=== PATIENT | male | born 1980 | race Caucasian/White ===

== ENCOUNTER 2019-01-01 03:04 | Emergency (ER) | payer MEDICARE, OTHER ==
[~2019-01-01] VITALS: Ht 185.4 cm; Wt 86.2 kg
--- OUTSIDE RECORDS SUMMARY | 2019-01-01 03:11 | XMS REPORT | Continuity of Care Document ---
Author Organization Unknown Address Unknown Phone Unavailable Allergies There is no data. Medications There is no data. Problems There is no data. Procedures There is no data. Results Test Result Range TSH w/ FREE T4 - 09/29/18 15:51 TSH 1.79 mIU/L 0.40-4.50 T4, FREE 1.2 ng/dL 0.8-1.8 LIPID PANEL - 09/29/18 15:51 CHOLESTEROL, TOTAL 191 mg/dL <200 HDL CHOLESTEROL 66 mg/dL >40 TRIGLYCERIDES 40 mg/dL <150 LDL-CHOLESTEROL 113 mg/dL (calc) NRG CHOL/HDLC RATIO 2.9 (calc) <5.0 NON HDL CHOLESTEROL 125 mg/dL (calc) <130 CMP - 09/29/18 15:51 GLUCOSE 60 mg/dL 65-99 UREA NITROGEN (BUN) 11 mg/dL 7-25 CREATININE 0.67 mg/dL 0.60-1.35 eGFR NON-AFR. CITIZEN OF [place] 122 mL/min/1.73m2 > OR=60 eGFR 141 mL/min/1.73m2 > OR=60 BUN/CREATININE RATIO NOT APPLICABLE (calc) 6-22 SODIUM 142 mmol/L 135-146 POTASSIUM 3.7 mmol/L 3.5-5.3 CHLORIDE 102 mmol/L 98-110 CARBON DIOXIDE 22 mmol/L 20-32 CALCIUM 9.4 mg/dL 8.6-10.3 PROTEIN, TOTAL 6.8 g/dL 6.1-8.1 ALBUMIN 4.6 g/dL 3.6-5.1 GLOBULIN 2.2 g/dL (calc) 1.9-3.7 ALBUMIN/GLOBULIN RATIO 2.1 (calc) 1.0-2.5 BILIRUBIN, TOTAL 0.7 mg/dL 0.2-1.2 ALKALINE PHOSPHATASE 62 U/L 40-115 AST 22 U/L 10-40 ALT 31 U/L 9-46 CBC w/MANUAL DIFF - 09/29/18 15:51 WHITE BLOOD CELL COUNT 5.7 Thousand/uL 3.8-10.8 RED BLOOD CELL COUNT 4.81 Million/uL 4.20-5.80 HEMOGLOBIN 14.8 g/dL 13.2-17.1 HEMATOCRIT 43.9 % 38.5-50.0 MCV 91.3 fL 80.0-100.0 MCH 30.8 pg 27.0-33.0 MCHC 33.7 g/dL 32.0-36.0 RDW 13.3 % 11.0-15.0 PLATELET COUNT 175 Thousand/uL 140-400 MPV 12.7 fL 7.5-12.5 ABSOLUTE NEUTROPHILS 2451 cells/uL 9776-1191 ABSOLUTE MONOCYTES 285 cells/uL 200-950 ABSOLUTE EOSINOPHILS 342 cells/uL 15-500 ABSOLUTE BASOPHILS 0 cells/uL 0-200 NEUTROPHILS 43.0 % NRG LYMPHOCYTES 46.0 % NRG MONOCYTES 5.0 % NRG EOSINOPHILS 6.0 % NRG BASOPHILS 0 % NRG ABSOLUTE LYMPHOCYTES 2622 cells/uL 850-3900 PLATELET ESTIMATION ADEQUATE ADEQUATE COMMENT(S) NRG SPECIMEN INTEGRITY COMPROMISED - 09/29/18 15:51 SPECIMEN INTEGRITY COMPROMISED NRG Encounters ACCT No. Visit Date/Time Discharge Status Pt. Type Provider Facility Loc./Unit Complaint [id number] 11/07/2018 14:30:00 11/07/2018 23:59:59 [facility] [id number] 09/29/2018 15:40:00 Document Registration
[2019-01-01] MEDS ORDERED: CYCLOBENZAPRINE 10 MG (FLEXERIL) TAB ONE (03:23)
--- NOTE | 2019-01-01 03:28 | ED Lower Extremity ---
General Chief Complaint: Lower Extremity Stated Complaint: left leg pain Source: patient, family (MOTHER) Exam Limitations: language barrier (pt deaf, mother present and translating with sign language) History of Present Illness Date Seen by Provider: Jan 01, 2019 Time Seen by Provider: 03:15 Initial Comments The patient is a pleasant 38-year-old male who presents for evaluation of lower back pain radiating to the left lower extremity which started earlier yesterday. 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 He believes that he pulled a muscle and is quite uncomfortable. He then noticed some muscle spasms to his lower back and radiation of pain down the back of the left leg. He denies previous similar symptoms. He states that years ago in high school he had a back injury from playing football. He reports feeling better standing up and sitting down. He denies any fevers or chills, bowel or bladder problems, focal weakness or numbness, abdominal pain, recent trauma or fall, trauma or syncope. He is able to ambulate to the emergency department room without any apparent difficulty or assistance. The patient is deaf and his mother is present and is interpreting with sign language. Onset: yesterday Severity: moderate Method of Injury: twisted Modifying Factors: Improves With Movement (makes it worse) Allergies and Home Medications Allergies Coded Allergies: No Known Drug Allergies (Unverified , 01/01/19) Patient Home Medication List Home Medication List Reviewed: Yes Review of Systems Constitutional: no symptoms reported EENTM: no symptoms reported Respiratory: no symptoms reported Cardiovascular: no symptoms reported Gastrointestinal: no symptoms reported Genitourinary: no symptoms reported Musculoskeletal: back pain Skin: no symptoms reported Psychiatric/Neurological: No Symptoms Reported All Other Systems Reviewed Negative Unless Noted: Yes Past Sytgtlk-Qhtbiz-Zcnjkc Hx Past Med/Social Hx: Reviewed Nursing Past Med/Soc Hx Patient Social History Alcohol Use: Denies Use Recreational Drug Use: No Type Used: Smokeless Tobacco Recent Hopitalizations: No Physical Abuse: No Sexual Abuse: No Mistreated: No Fear: No Seasonal Allergies Seasonal Allergies: No Past Medical History Surgeries: No Respiratory: No Cardiac: No Neurological: No Genitourinary: No Gastrointestinal: No Musculoskeletal: No Endocrine: No HEENT: Yes Hearing Impairment: Deaf Cancer: No Did You Recieve Any Treatments: No Psychosocial: No Integumentary: No Physical Exam Vital Signs Vital Signs - First Documented 01/01/19 03:09 Temp 97.5 Pulse 72 Resp 20 B/P (MAP) 138/90 (106) Pulse Ox 95 O2 Delivery Room Air Capillary Refill : Height, Weight, BMI Height: '" Weight: lbs. oz. kg; BMI Method: General Appearance: WD/WN, no apparent distress HEENT: PERRL/EOMI Neck: non-tender, normal inspection Cardiovascular: regular rate, rhythm, no JVD, no murmur Respiratory: normal breath sounds, no respiratory distress, no accessory muscle use Back: no CVA tenderness, other (tenderness with palpation in the paraspinal muscles in the left lumbar region, muscle spasm present, no midline tenderness, no step-off or deformity) Hips: bilateral hip non-tender, bilateral hip normal inspection, bilateral hip normal range of motion, bilateral hip no evidence of injury Legs: bilateral leg non-tender, bilateral leg normal inspection, bilateral leg normal range of motion, bilateral leg no evidence of injury Knees: bilateral knee non-tender, bilateral knee normal inspection, bilateral knee normal range of motion, bilateral knee no evidence of injury Ankles: bilateral ankle non-tender, bilateral ankle normal inspection, bilateral ankle normal range of motion, bilateral ankle no evidence of injury Neurologic/Tendon: normal sensation, normal motor functions, normal tendon functions Neurologic/Psychiatric: label fuser tender II-XII nml as tested, alert, normal mood/affect, oriented x 3 Skin: normal color, warm/dry Lymphatic: no adenopathy Progress/Results/Core Measures Results/Orders My Orders Orders - OLAMIDE LAWS DO Ketorolac Injection (Toradol Injection) (01/01/19 03:30) Diazepam Injection (Valium Injection) (01/01/19 03:30) Tramadol Tablet (Ultram Tablet) (01/01/19 03:30) Lumbar Spine 2 Or 3 View (01/01/19 03:22) Cyclobenzaprine Tablet (Flexeril Tablet) (01/01/19 03:30) Vital Signs/I&O 01/01/19 03:09 Temp 97.5 Pulse 72 Resp 20 B/P (MAP) 138/90 (106) Pulse Ox 95 O2 Delivery Room Air Progress Progress Note : Progress Note @0350 - patient and mother informed of unremarkable x-ray imaging. The patient will go home with a prescription for Ashburn and Flexeril and has been given a physician to follow-up with. Advised the patient to return to the emergency department immediately for new or worsening symptoms. The patient expresses unde rstanding and agreement with the plan through his mother who is interpreting. He is stable for discharge at this time. Departure Impression Primary Impression: Acute left-sided back pain with sciatica Disposition: HOME, SELF-CARE Condition: Stable Departure-Patient Inst. Decision time for Depature: 03:55 Referrals: DAVID JEFFERY,LOCAL PHYSICIAN (PCP) Primary Care Physician Patient Instructions: Low Back Pain (DC), Muscle Spasms (DC), Sciatica (DC), Sciatica Exercises Add. Discharge Instructions: Take the prescribed medication as directed. Follow-up with your primary care physician in the next 1-2 days. Return to the emergency department for new or worsening symptoms. Scripts Cyclobenzaprine HCl (Cyclobenzaprine HCl) 10 Mg Tablet 10 MG PO Q6H PRN for BACK PAIN for 3 Days, #12 TAB Prov: OLAMIDE LAWS DO 01/01/19 Hydrocodone/Acetaminophen (Ashburn 5-325 Tablet) 1 Each Tablet 1 TAB PO Q4-6HR PRN for BACK PAIN MDD 10 TABS for 3 Days, #12 TAB Prov: OLAMIDE LAWS DO 01/01/19 OLAMIDE LAWS DO Jan 01, 2019 03:28
[2019-01-01] MEDS ORDERED: CYCLOBENZAPRINE 10 MG (FLEXERIL) TAB PO PRN (03:30)
[2019-01-01] MEDS ORDERED: DIAZEPAM INJ 10 MG/2 ML (VALIUM) SYR IM ONE (03:30)
[2019-01-01] MEDS ORDERED: KETOROLAC 60 MG/2 ML VIAL IM ONE (03:30)
[2019-01-01] MEDS ORDERED: HYDR-4226 PO (03:49)
[2019-01-01] MEDS ORDERED: CYCL10TA9 PO (03:49)
[2019-01-01 03:56] VITALS: BP 138/90
--- NOTE | 2019-01-01 06:49 | Diagnostic Imaging Report ---
INDICATION: Back pain Lumbar spine AP and lateral views of the lumbar spine show mild degenerative changes of the disc at L5-S1. Alignment is normal. The other disc spaces are normal. There are no compression fractures. IMPRESSION: Minimal degenerative changes at L5-S1. Dictated by: Dictated on workstation # [id number]
== END 2019-01-01 03:56 | disposition home or self-care (01) ==
LOC: ER FS 03:07
DX: M54.42 Lumbago with sciatica, left side (principal); X50.1XXA Overexertion from prolonged static or awkward postures, initial encounter; Y92.59 Other trade areas as the place of occurrence of the external cause; Y99.0 Civilian activity done for income or pay
CPT/HCPCS: 72100

== ENCOUNTER 2019-01-08 15:02 | Emergency (ER) | payer MEDICARE ==
[~2019-01-08] VITALS: Ht 152.4 cm; Wt 127.0 kg
[~2019-01-08 15:02] MED LIST: CYCL10TA9 PO; HYDR-4226 PO
[2019-01-08] MEDS ORDERED: DEXAMETHASONE 4 MG/ML SDV (DECADRON) IM ONE (15:45)
[2019-01-08] MEDS ORDERED: KETOROLAC 60 MG/2 ML VIAL IM ONE (15:45)
--- NOTE | 2019-01-08 15:46 | ED Back Pain ---
General Chief Complaint: Lower Extremity Stated Complaint: ANAL & LT LEG PAIN Source of Information: Patient Exam Limitations: No Limitations, Other (Pt is deaf, communicated by writing on cell phone) History of Present Illness Date Seen by Provider: Jan 08, 2019 Time Seen by Provider: 15:30 Initial Comments The patient is a very pleasant 38-year-old male presents for evaluation of left lower back/buttock pain radiating down the left leg. He has been seen here a few times previously for the same complaint. He states that he went to urgent care the other day for his sciatica and received a steroid injection which helped significantly. Today he drove himself to the emergency department and was able to get into the room without any difficulty or assistance. The patient is deaf and communicates with writing on his cell phone. He denies any difficulty controlling his bowel or bladder, fevers or chills, recent trauma, recent injections into his spine, nausea or vomiting, unintentional weight loss, focal weakness or focal numbness. He is alert and oriented 4, calm, appears somewhat uncomfortable but in no distress. 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) Modifying Factors: Improves With Movement (makes the pain worse), Improves With Pain Medication (Makes the pain better), Improves With Rest (makes the pain better) Allergies and Home Medications Allergies Coded Allergies: No Known Drug Allergies (Unverified , 01/01/19) Home Medications Cyclobenzaprine HCl 10 Mg Tablet, 10 MG PO Q6H PRN for BACK PAIN Prescribed by: OLAMIDE LAWS on 01/01/19 0349 Hydrocodone/Acetaminophen 1 Each Tablet, 1 TAB PO Q4-6HR PRN for BACK PAIN Prescribed by: OLAMIDE LAWS on 01/01/19 0349 Patient Home Medication List Home Medication List Reviewed: Yes Review of Systems Constitutional: no symptoms reported EENTM: no symptoms reported Respiratory: no symptoms reported Cardiovascular: no symptoms reported Gastrointestinal: no symptoms reported Genitourinary: no symptoms reported Musculoskeletal: back pain (radiating down the left leg) Skin: no symptoms reported Psychiatric/Neurological: No Symptoms Reported All Other Systems Reviewed Negative Unless Noted: Yes Past Mjhjkiq-Kmvhgk-Jecfgj Hx Past Med/Social Hx: Reviewed Nursing Past Med/Soc Hx Patient Social History Type Used: Smokeless Tobacco Recent Hopitalizations: No Seasonal Allergies Seasonal Allergies: No Past Medical History Surgeries: No Respiratory: No Cardiac: No Neurological: No Genitourinary: No Gastrointestinal: No Musculoskeletal: No Endocrine: No HEENT: Yes Hearing Impairment: Deaf Cancer: No Did You Recieve Any Treatments: No Psychosocial: No Integumentary: No Physical Exam Vital Signs Capillary Refill : Height, Weight, BMI Height: 6'1.00" Weight: 190lbs. 0oz. [id number]; BMI Method:Stated General Appearance: No Apparent Distress, WD/WN HEENT: PERRL/EOMI, Normal ENT Inspection Neck: Full Range of Motion, Non Tender Cardiovascular: Regular Rate, Rhythm, No Edema, Normal Peripheral Pulses Respiratory: Chest Non Tender, Normal Breath Sounds, No Respiratory Distress Gastrointestinal: Normal Bowel Sounds, Non Tender, Soft Back: No CVA Tenderness, No Vertebral Tenderness, Other (tenderness palpation at the left lumbosacral border and the left upper buttock) Extremity: Non Tender Neurologic/Psychiatric: Alert, Oriented x3, No Motor/Sensory Deficits, Normal Mood/Affect Skin: Normal Color, Warm/Dry Progress/Results/Core Measures Results/Orders My Orders Orders - OLAMIDE LAWS DO Dexamethasone Injection (Decadron Inject (01/08/19 15:45) Ketorolac Injection (Toradol Injection) (01/08/19 15:45) Medications Given in ED Current Medications Medications Dose Ordered Sig/David Route Start Time Stop Time Status Last Admin Dose Admin Dexamethasone Sodium Phosphate 10 mg ONCE ONCE IM 01/08/19 15:45 01/08/19 15:46 DC 01/08/19 16:04 10 MG Ketorolac Tromethamine 60 mg ONCE ONCE IM 01/08/19 15:45 01/08/19 15:46 DC 01/08/19 16:04 60 MG Progress Progress Note : Progress Note @1605 - Advised the patient to follow up with his PCP and that he maybe an MRI. Patient is able to walk without any difficulty. He will go home with a prescription for a muscle relaxer and pain medication. Advised patient to return to the emergency department for new or worsening symptoms. No red flags for serious back pain etiology identified at this time. Departure Impression Primary Impression: Sciatica of left side Disposition: HOME, SELF-CARE Condition: Stable Departure-Patient Inst. Decision time for Depature: 16:10 Referrals: CRISTINA CARLISLE MD NO,LOCAL PHYSICIAN (PCP) Primary Care Physician Patient Instructions: Sciatica Exercises, Sciatica, Femur Fracture (DC) Add. Discharge Instructions: Take the medication as prescribed, as needed. Follow-up with your doctor in the next 1-2 days. As discussed you may need to have an MRI to further evaluate your lower back and sciatic nerve. Return to the emergency department for new or worsening symptoms. Scripts Tramadol HCl (Ultram) 50 Mg Tablet 50 MG PO Q6H for Back Pain for 3 Days, #12 TAB Prov: OLAMIDE LAWS DO 01/08/19 Diazepam (Valium) 5 Mg Tablet 5 MG PO Q8H for Muscle Spasms for 4 Days, #12 TAB Prov: OLAMIDE LAWS DO 01/08/19 OLAMIDE LAWS DO Jan 08, 2019 15:46
[2019-01-08] MEDS ORDERED: TRAM-42 PO (16:10)
[2019-01-08] MEDS ORDERED: DIAZ5TAB PO (16:10)
[2019-01-08 16:15] VITALS: BP 106/85
== END 2019-01-08 16:19 | disposition home or self-care (01) ==
LOC: EDUNIT# 15:02 → ER FS 15:04
DX: M54.42 Lumbago with sciatica, left side (principal)
CPT/HCPCS: 99284

== ENCOUNTER → 2019-01-19 | Outpatient (CLI) | payer BC, MEDICARE ==
[~2019-01-19] MED LIST changes: +DIAZ5TAB PO; +TRAM-42 PO
--- NOTE | 2019-01-19 09:20 | Diagnostic Imaging Report ---
PROCEDURE: MRI left joint lower extremity without contrast. TECHNIQUE: Multiplanar, multisequence non contrast-enhanced MRI of the left lower extremity was accomplished. INDICATION: Knee pain. FINDINGS: The anterior cruciate and posterior cruciate ligaments are intact. Both the superficial and deep components of the medial collateral ligament are intact. The biceps femoris, fibular collateral and iliotibial band are intact. The popliteus tendon is intact. The medial meniscus is normal in signal intensity and morphology. The lateral meniscus is also normal in signal intensity and morphology. The quadriceps tendon and patellar tendons are intact. There is no significant knee joint effusion. The articular cartilage is well maintained in all three knee joint compartments. There are no areas of underlying marrow edema. IMPRESSION: No significant internal derangement of the left knee. Dictated by: Dictated on workstation # [id number]
--- NOTE | 2019-01-19 10:43 | Diagnostic Imaging Report ---
PROCEDURE: MRI left joint lower extremity without contrast. TECHNIQUE: Multiplanar, multisequence non contrast-enhanced MRI of the left lower extremity was accomplished. INDICATION: Left-sided pain from the buttock region down to the foot since earlier this month. EXAMINATION: MRI of the left lower extremity from 01/19/2019. FINDINGS: There is a fluidlike collection along the posterior aspect of the left hip. Its origin is uncertain but most likely emanates from the joint space suggesting a ganglion. This is somewhat complex in appearance and its largest component measures 1.9 cm in greatest dimension. The hip joint itself does demonstrate a linear hyperintensity along the anterior superior labrum best seen on the sagittal proton density fat-saturated sequence image #16. If there are symptoms suggestive of a labral tear post-arthrogram imaging could better characterize this finding. The osseous structures demonstrate no evidence for acute abnormalities. The hamstrings tendon origins bilaterally symmetric and unremarkable. Remaining visualized tendons intact with visualized iliopsoas tendons and muscles also unremarkable. The intrapelvic structures demonstrate no acute abnormalities. IMPRESSION: 1. Nonspecific cystic collection posterior left hip most likely a ganglion on emanating from the hip joint. This in addition to the questions tear of the anterior superior labrum could be better characterized with post-arthrogram imaging as clinically indicated. Dictated by: Dictated on workstation # [id number]
== END ==
LOC: RAD 08:05
PROVIDERS: ATTEND Nurse Practitioner Family
DX: M25.562 Pain in left knee (principal); M25.552 Pain in left hip
CPT/HCPCS: 73721

== ENCOUNTER → 2019-01-20 | Outpatient (CLI) | payer MEDICARE ==
--- NOTE | 2019-01-20 11:17 | Diagnostic Imaging Report ---
PROCEDURE: MRI lumbar spine. TECHNIQUE: Multiplanar, multisequence MRI of the lumbar spine was performed without contrast. INDICATION: Back injury, pain. COMPARISON: None. FINDINGS: For the purposes of this exam, last well-formed disc space is denoted the L5-S1 level. Evaluation of the static alignment shows slight grade 1 retrolisthesis at L5-S1. There is no evidence of jumped facets. Vertebral body heights are maintained. There is no evidence of acute fracture. Evaluation of the marrow signal demonstrates Modic type I change of the adjacent endplates at L5-S1. There is also mild intervertebral disc height loss at this level. Remaining intervertebral disc heights are fairly well maintained, although note is also made of posterior annular tear at L4-L5. Visualized portions of the distal cord are unremarkable. Conus terminates at approximately the L1-L2 level. No abnormal intrathecal filling defects are seen. Pre- and para-vertebral soft tissue structures are unremarkable. The axial images demonstrate the following: L1-L2 and L2-L3: There is no significant disc bulge or focal protrusion. There is no significant spinal canal or neural foraminal stenosis. L3-L4: There is slight broad-based posterior disc bulge, which results in minimal effacement of the anterior thecal sac. Spinal canal and neural foramina are otherwise unremarkable. L4-L5: There is broad-based posterior disc bulge and bilateral ligamentum flavum laxity and facet arthropathy. As a result, there is mild narrowing of the spinal canal and neural foramina. L5-S1: There is broad-based posterior disc bulge. Additionally, there is extrusion of disc material inferiorly into the anterior epidural space posterior to the S1 vertebral body on the left. This likely results in significant mass effect on the exiting left S1 nerve root. There is also mild asymmetric stenosis of the spinal canal. Neural foramina are minimally narrowed. IMPRESSION: 1. Large extruded disc fragment posterior to the S1 vertebral body from the L5-S1 intervertebral disc resulting in severe mass effect on the exiting left S1 nerve root. 2. No acute fracture or dislocation. 3. Other degenerative changes of the lumbar spine as described above. Dictated by: Dictated on workstation # [id number]
== END ==
LOC: RAD 09:21
PROVIDERS: ATTEND Nurse Practitioner Family
DX: M51.27 Other intervertebral disc displacement, lumbosacral region (principal); M48.07 Spinal stenosis, lumbosacral region; M43.17 Spondylolisthesis, lumbosacral region; M51.37 Other intervertebral disc degeneration, lumbosacral region; S39.92XA Unspecified injury of lower back, initial encounter
CPT/HCPCS: 72148

== ENCOUNTER 2021-04-18 17:20 | Emergency (ER) | payer OTHER, BC ==
[~2021-04-18 17:20] MED LIST changes: +CYCL10TA25 PO; -CYCL10TA9 PO
[2021-04-18] MEDS ORDERED: FLUORESCEIN (FLUOR-I-STRIPS) 1 MG STRP ONE (17:28)
[2021-04-18] MEDS ORDERED: TETRACAINE 0.5% OPHTH SOLN 4 ML BTL (SINGLE DOSE ONLY) ONE (17:28)
[2021-04-18] MEDS ORDERED: TETRACAINE 0.5% OPHTH SOLN 4 ML BTL (SINGLE DOSE ONLY) OP ONE (17:30)
[2021-04-18] MEDS ORDERED: TETRACAINE 0.5% OPHTH SOLN 4 ML BTL (SINGLE DOSE ONLY) OU ONE (17:45)
[2021-04-18] MEDS ORDERED: FLUORESCEIN (FLUOR-I-STRIPS) 1 MG STRP OU ONE (17:45)
--- NOTE | 2021-04-18 17:52 | ED EENT ---
History of Present Illness General Chief Complaint: Eye Problems Stated Complaint: WC,EYE BURNING History of Present Illness Date Seen by Provider: Apr 18, 2021 Time Seen by Provider: 17:47 Initial Comments Patient presenting to the emergency department for evaluation of bilateral eye pain that started shortly prior to arrival. Patient is deaf so all communication was done over writing on a piece of paper which was initially difficult but after getting tetracaine he was able to read and write with no difficulties and communicated effectively. 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 Patient says he does not wear contact lenses or glasses. He denies any trauma or overuse and says that he has no vision changes or blurring rather just hurts significantly to open his eyes. He is uncomfortable but nontoxic with normal vital signs. Allergies and Home Medications Allergies Coded Allergies: No Known Drug Allergies (Unverified , 01/01/19) Patient Home Medication List Home Medication List Reviewed: Yes Cyclobenzaprine HCl (Cyclobenzaprine HCl) 10 Mg Tablet, 10 MG PO Q6H PRN for BACK PAIN Prescribed by: OLAMIDE LAWS on 01/01/19 0349 Diazepam (Valium) 5 Mg Tablet, 5 MG PO Q8H Prescribed by: OLAMIDE LAWS on 01/08/19 1610 Hydrocodone/Acetaminophen (Hydrocodone/Acetaminophen 5 MG/325 MG TAB) 1 Each Tablet, 1 TAB PO Q4-6HR PRN for BACK PAIN Prescribed by: OLAMIDE LAWS on 01/01/19 0349 Tramadol HCl (Ultram) 50 Mg Tablet, 50 MG PO Q6H Prescribed by: OLAMIDE LAWS on 01/08/19 1610 Review of Systems Review of Systems Constitutional: no symptoms reported Eyes: Drainage, Pain, Photophobia All Other Systems Reviewed Negative Unless Noted: Yes Past Ivityeq-Eqrsdz-Scyjim Hx Seasonal Allergies Seasonal Allergies: No Past Medical History Surgeries: No Respiratory: No Cardiac: No Neurological: No Genitourinary: No Gastrointestinal: No Musculoskeletal: No Endocrine: No HEENT: Yes Hearing Impairment: Deaf Cancer: No Did You Recieve Any Treatments: No Psychosocial: No Integumentary: No Physical Exam Height, Weight, BMI Height: 5'1.00" Weight: 280lbs. 0oz. 127.834386hf; BMI Method:Stated General Appearance: WD/WN, no apparent distress Eyes: right eye foreign body (? FB over 7 oclock position on cornea but on fluoroscein exam appeared to be more of a small uptake from keratitis); bilateral eye PERRL, bilateral eye EOMI, bilateral eye conjunctival inflammation, bilateral eye vision changes, bilateral eye other (Bilateral eyes had punctate areas of fluorescein uptake but no obvious foreign body and a Paty sign was negative. Diffuse scleral information.) Neurologic/Psychiatric: alert, oriented x 3 Skin: warm/dry Progress/Results/Core Measures Results/Orders My Orders Orders - MATT GARCIA DO Tetracaine 0.5% Ophth Kenzie Sdv (Tetracai (04/18/21 17:30) Fluorescein Strips (Nvetm-A-Inpyti) (04/18/21 17:28) Tetracaine 0.5% Ophth Kenzie Sdv (Tetracai (04/18/21 17:28) Tetracaine 0.5% Ophth Kenzie Sdv (Tetracai (04/18/21 17:45) Fluorescein Strips (Vkcve-G-Pmuhag) (04/18/21 17:45) Medications Given in ED Current Medications Medications Dose Ordered Sig/David Route Start Time Stop Time Status Last Admin Dose Admin Fluorescein Sodium 1 mg ONCE ONCE OU 04/18/21 17:45 04/18/21 17:46 04/18/21 17:45 1 MG Progress Progress Note : Progress Note Patient has history and physical exam consistent with an ultraviolet keratitis. Patient's vision is intact and he feels much better after fluorescein application. I will prescribe him erythromycin ointment Jber ibuprofen and told him to follow with a primary care provider within the next 2 to 3 days for recheck and he should come back to the emergency department with worsening pain vision changes or other general concerns. Patient aware and agreeable with plan and communicated understanding over written summary. 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 Referrals: NO,LOCAL PHYSICIAN (PCP) Primary Care Physician JOANIE BALLARD APRN (Family) Primary Care Physician Patient Instructions: Photokeratitis ([facility]) Scripts Ibuprofen (Ibuprofen) 800 Mg Tablet 800 MG PO Q8H PRN for PAIN, #20 TAB 0 Refills Prov: MATT GARCIA DO 04/18/21 Hydrocodone/Acetaminophen (Hydrocodone-Acetamin 5-325 mg) 1 Each Tablet 1 TAB PO Q4H PRN for PAIN-MODERATE (5-7), #14 TAB Prov: MATT GARCIA DO 04/18/21 Erythromycin Base (Erythromycin Opthalmic Ointment) 1 Gm Oint...g. 0 OP Q4H for 5 Days, #3 GM 1/2 inch Prov: MATT GARCIA DO 04/18/21 Work/School Note: Work Release Form Date Seen in the Emergency Department: Apr 18, 2021 Return to Work: Apr 22, 2021 Restrictions: No Restrictions MATT GARCIA DO Apr 18, 2021 17:52
[2021-04-18] MEDS ORDERED: IBUP-1780 PO (17:54)
[2021-04-18] MEDS ORDERED: ERYT1OIN6 OP (17:54)
[2021-04-18] MEDS ORDERED: ACHD5005 PO (17:54)
[2021-04-18 17:56] VITALS: BP 145/80
== END 2021-04-18 17:58 | disposition home or self-care (01) ==
LOC: EDUNIT# 17:20 → ER FS 17:21
DX: H16.133 Photokeratitis, bilateral (principal)
CPT/HCPCS: 99285

== ENCOUNTER 2022-08-21 03:01 | Emergency (ER) | payer BC ==
[~2022-08-21 03:01] MED LIST changes: +ACHD5005 PO; +ERYT1OIN6 OP; +IBUP-1780 PO
[2022-08-21] MEDS ORDERED: TETRACAINE 0.5% OPHTH SOLN 4 ML BTL (SINGLE DOSE ONLY) ONE (03:07)
[2022-08-21] MEDS ORDERED: FLUORESCEIN (FLUOR-I-STRIPS) 1 MG STRP ONE (03:07)
[2022-08-21] MEDS ORDERED: TETRACAINE 0.5% OPHTH SOLN 4 ML BTL (SINGLE DOSE ONLY) OP ONE (03:15)
[2022-08-21] MEDS ORDERED: FLUORESCEIN (FLUOR-I-STRIPS) 1 MG STRP OP ONE (03:15)
--- NOTE | 2022-08-21 03:23 | ED EENT ---
History of Present Illness General Chief Complaint: Eye Problems Stated Complaint: TROUBLE SEEING Nursing Triage Note: Pt presents with the complaint of bilateral eye pain and trouble seeing. 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 Feels similar to prior episodes. He was wearing a welders helmet, so he believes it could have been a smoke because irritation to his eyes. He states this is happened before, but this is not as bad as that time. He still able to see, but does have sensitivity to light. Otherwise denies any fever, neck stiffness, or any other concerns. Allergies and Home Medications Allergies Coded Allergies: No Known Drug Allergies (Unverified , 01/01/19) Patient Home Medication List Home Medication List Reviewed: Yes Cyclobenzaprine HCl (Cyclobenzaprine HCl) 10 Mg Tablet, 10 MG PO Q6H PRN for BACK PAIN Prescribed by: OLAMIDE LAWS on 01/01/19 034 Diazepam (Valium) 5 Mg Tablet, 5 MG PO Q8H Prescribed by: OLAMIDE LAWS on 01/08/19 1610 Erythromycin Base (Erythromycin Opthalmic Ointment) 1 Gm Oint...g., 0 OP Q4H Prescribed by: MATT GARCIA on 04/18/21 175 Erythromycin Base (Erythromycin Opthalmic Ointment) 5 Mg/Gram (0.5 %) Oint...g., 0 OP Q6H Prescribed by: BRUNILDA HERNANDEZ on 08/21/22 0328 Hydrocodone/Acetaminophen (Hydrocodone/Acetaminophen 5 MG/325 MG TAB) 1 Each Tablet, 1 TAB PO Q4-6HR PRN for BACK PAIN Prescribed by: OLAMIDE LAWS on 01/01/19 0349 Hydrocodone/Acetaminophen (Hydrocodone-Acetamin 5-325 mg) 1 Each Tablet, 1 TAB PO Q4H PRN for PAIN-MODERATE (5-7) Prescribed by: MATT GARCIA on 04/18/21 175 Ibuprofen (Ibuprofen) 800 Mg Tablet, 800 MG PO Q8H PRN for PAIN Prescribed by: MATT GARCIA on 04/18/21 175 Oxycodone HCl (Oxycodone HCl) 5 Mg Tablet, 5 MG PO Q6H PRN for PAIN-MODERATE TO SEVERE Prescribed by: BRUNILDA HERNANDEZ on 08/21/22 0329 Tramadol HCl (Ultram) 50 Mg Tablet, 50 MG PO Q6H Prescribed by: OLAMIDE LAWS on 01/08/19 1610 Review of Systems Review of Systems Constitutional: No fever Eyes: See HPI Ears: No Symptoms Reported Nose: no symptoms reported Mouth: no symptoms reported Respiratory: no symptoms reported Cardiovascular: no symptoms reported Past [place]-[id number]-Htnzpw Hx Patient Social History Tobacco Use?: No Use of E-Cig and/or Vaping dev: No Substance use?: No Alcohol Use?: No Pt feels they are or have been: No Seasonal Allergies Seasonal Allergies: No Past Medical History Surgeries: No Respiratory: No Cardiac: No Neurological: No Genitourinary: No Gastrointestinal: No Musculoskeletal: No Endocrine: No HEENT: Yes Hearing Impairment: Deaf Cancer: No Did You Recieve Any Treatments: No Psychosocial: No Integumentary: No Visual Acuity : Eye Location: Bilaterally Vision Acuity Degree: 20/20 Physical Exam Vital Signs Vital Signs - First Documented 08/21/22 03:04 Temp 36.5 Pulse 55 Resp 18 B/P (MAP) 119/78 (92) Pulse Ox 98 O2 Delivery Room Air Height, Weight, BMI Height: 5'1.00" Weight: 280lbs. 0oz. [id number]; BMI Method:Stated General Appearance: WD/WN, mild distress Eyes: bilateral eye other (On fluorescein exam there is small pinpoint areas of increased uptake on the cornea consistent with superficial punctate keratitis, surrounding eyelid mildly erythematous) Ears: bilateral ear auricle normal Nose: normal inspection Mouth/Throat: normal mouth inspection Neck: non-tender, full range of motion, supple, normal inspection Cardiovascular: normal peripheral pulses, regular rate, rhythm Respiratory: chest non-tender, lungs clear Gastrointestinal: soft Neurologic/Psychiatric: no motor/sensory deficits, alert, normal mood/affect Skin: normal color, warm/dry Progress/Results/Core Measures Results/Orders My Orders Orders - BRUNILDA HERNANDEZ MD Fluorescein Strips (Coqjb-O-Yprcul) (08/21/22 03:15) Tetracaine 0.5% Ophth Kenzie Sdv (Tetracai (08/21/22 03:15) Fluorescein Strips ([id number]-[id number]-Ojhlxj) (08/21/22 03:07) Tetracaine 0.5% Ophth Kenzie Sdv (Tetracai (08/21/22 03:07) Ibuprofen Tablet (Motrin Tablet) (08/21/22 03:30) Oxycodone Immediate Rel Tablet (Oxyir Ta (08/21/22 03:30) Medications Given in ED Current Medications Medications Dose Ordered Sig/David Route Start Time Stop Time Status Last Admin Dose Admin Fluorescein Sodium ONCE ONCE OP 08/21/22 03:15 08/21/22 03:16 DC 08/21/22 03:10 1 MG Ibuprofen 600 mg ONCE ONCE PO 08/21/22 03:30 08/21/22 03:31 DC 08/21/22 03:26 600 MG Oxycodone HCl 5 mg ONCE ONCE PO 08/21/22 03:30 08/21/22 03:31 DC 08/21/22 03:26 5 MG Tetracaine HCl 1 OR 2 DROPS INTO AFFEC... ONCE ONCE OP 08/21/22 03:15 08/21/22 03:16 DC 08/21/22 03:10 4 ML Vital Signs/I&O 08/21/22 03:04 Temp 36.5 Pulse 55 Resp 18 B/P (MAP) 119/78 (92) Pulse Ox 98 O2 Delivery Room Air Blood Pressure Mean: 92 Progress Progress Note : Progress Note 41-year-old male with above history coming in due to bilateral eye pain. ABCs were intact and vitals were stable on presentation. Physical exam with a slit- lamp showing small pinpoint areas of increased uptake of the fluorescein consistent with a superficial punctate keratitis also known as ultraviolet keratitis from likely welding exposure. Pain gone with tetracaine. Visual acuity normal. He did not have any chemical exposure to his eye, but rinsed with copious amounts of saline to be sure. We will give him an oxycodone here, followed by a prescription for pain medication and antibiotic ointment. I believe he is otherwise stable for discharge with outpatient follow-up. He was sent home with strict return precautions. 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 Decision time for Depature: 03:40 Referrals: NO,LOCAL PHYSICIAN (PCP) Primary Care Physician JOANIE BALLARD APRN (Family) Primary Care Physician Patient Instructions: Corneal Abrasion (DC) Add. Discharge Instructions: The medical term for this is an ultraviolet keratitis which essentially is like multiple small abrasions to your eye from the burn. The eye fixes itself in 48 to 72 hours. Take ibuprofen and/or Tylenol as needed for pain. If you have pain on top of that, you can take the oxycodone. Antibiotic ointments were also sent to your pharmacy to use 3 times a day for comfort. Follow-up with your regular doctor if you are not improving in the next couple of days. I would try to rest her eyes for the next couple of days to allow time for healing since it is going to be so uncomfortable. Scripts Oxycodone HCl (Oxycodone HCl) 5 Mg Tablet 5 MG PO Q6H PRN for PAIN-MODERATE TO SEVERE for 3 Days, #12 TAB Prov: BRUNILDA HERNANDEZ MD 08/21/22 Erythromycin Base (Erythromycin Opthalmic Ointment) 5 Mg/Gram (0.5 %) Oint...g. 0 OP Q6H for 5 Days, #1 EA 1/2 inch Prov: BRUNILDA HERNANDEZ MD 08/21/22 Work/School Note: Family Work Note, Patient Received Medical Care In the Emergency Department On: Aug 21, 2022 Patient Will Be Able to Return to Work/School On: Aug 23, 2022 Work Release Form Date Seen in the Emergency Department: Aug 21, 2022 Return to Work: Aug 23, 2022 Restrictions: No Restrictions BRUNILDA HERNANDEZ MD Aug 21, 2022 03:23
[2022-08-21] MEDS ORDERED: OXYC5TAB PO (03:28)
[2022-08-21] MEDS ORDERED: ERYT1OIN6 OP (03:28)
[2022-08-21] MEDS ORDERED: IBUPROFEN 600 MG (MOTRIN) TAB PO ONE (03:30)
[2022-08-21 03:39] VITALS: BP 119/78
== END 2022-08-21 03:41 | disposition home or self-care (01) ==
LOC: EDUNIT# 03:01 → ER FS 03:03
DX: H16.133 Photokeratitis, bilateral (principal); Z28.310 Unvaccinated for COVID-19
CPT/HCPCS: 99283